=== PATIENT | male | born 1945 | race Caucasian/White ===

== ENCOUNTER 2022-07-25 07:00 | Day surgery (SDC) | payer MEDICARE, OTHER ==
[2022-07-24 14:57] LABS: BASOPHILS % (AUTO) 0.5 % (0-1); EOSINOPHILS # (AUTO) 0.1 X10'3 (0-0.9); EOSINOPHILS % (AUTO) 2.5 % (0-6); HEMATOCRIT 40.5 % (42.0-52.0); HEMOGLOBIN 13.9 g/dl (14.0-17.9); LYMPHOCYTES # (AUTO) 1.5 X10'3 (1.1-4.8); LYMPHOCYTES % (AUTO) 27.4 % (21-51); MEAN CORPUSCULAR HEMOGLOBIN 31.7 PG (27.0-31.0); MEAN CORPUSCULAR HGB CONC 34.3 g/dL (33.0-36.5); MEAN CORPUSCULAR VOLUME 92.3 FL (78-98); MEAN PLATELET VOLUME 8.3 FL (7.4-10.4); MONOCYTES # (AUTO) 0.5 X10'3 (0-0.9); MONOCYTES % (AUTO) 9.9 % (2-12); NEUTROPHILS # (AUTO) 3.2 X10'3 (1.8-7.7); NEUTROPHILS % (AUTO) 59.7 % (42-75); PLATELET COUNT 153 X10'3 (140-440); RED BLOOD COUNT 4.39 X10'6 (4.70-6.10); RED CELL DISTRIBUTION WIDTH 13.6 % (11.5-14.5); WHITE BLOOD COUNT 5.4 X10'3 (4.5-11.0)
[2022-07-24 14:59] LABS: ALBUMIN 3.8 G/DL (3.4-5.0); ANION GAP 5 (8-16); BLOOD UREA NITROGEN 27 MG/DL (7-18); CALCIUM 9.2 MG/DL (8.5-10.1); CHLORIDE 104 MMOL/L (99-107); CREATININE 1.08 MG/DL (0.60-1.10); GLUCOSE 97 MG/DL (70-104); POTASSIUM 4.3 MMOL/L (3.5-5.1); SODIUM 139 MMOL/L (135-145); TOTAL CARBON DIOXIDE 30.2 MMOL/L (24-32); eGFR 66 ML/MIN
[~2022-07-25] VITALS: Ht 182.9 cm; Wt 81.6 kg
[~2022-07-25 07:00] MED LIST: ATOR20TA66 PO; CHOL400C8 PO; DRON400T7 PO; MULT-342 PO; OSC500T PO
[2022-07-25] MEDS ORDERED: morphine 10mg/ml inj. IV ONE (07:15)
[2022-07-25] MEDS ORDERED: LORazepam 0.5 MG tablet PO ONE (07:15)
[2022-07-25] MEDS ORDERED: MIDAZolam 1mg/ml 10ml vial IV ONE (07:15)
[2022-07-25] MEDS ORDERED: atropine 0.1mg/ml 10ml syringe IV ONE (07:15)
[2022-07-25] MEDS ORDERED: amiodarone 150mg/dext, iso-os 100 ML IV ONE (07:15)
[2022-07-25] MEDS ORDERED: diphenhydrAMINE 25mg capsule PO ONE (07:15)
[2022-07-25] MEDS ORDERED: normal saline 1000ml 1,000 ML IV SCH (07:15)
[2022-07-25] MEDS ORDERED: APIX5TAB3 PO (07:16)
[2022-07-25] MEDS ORDERED: FLEC100T35 PO (07:16)
[2022-07-25] MEDS ORDERED: ATOR10TA70 PO (07:16)
[2022-07-25] MEDS ORDERED: UBID100C16 PO (07:18)
[2022-07-25] MEDS ORDERED: ASPI-611 PO (07:18)
[2022-07-25 07:28] VITALS: BP 159/91
== END 2022-07-25 10:00 | disposition home or self-care (01) ==
LOC: SSTAY O 07:00
PROVIDERS: ATTEND Internal Medicine Cardiovascular Disease
DX: I48.0 Paroxysmal atrial fibrillation (principal); Z53.8 Procedure and treatment not carried out for other reasons; I10 Essential (primary) hypertension; E78.5 Hyperlipidemia, unspecified; Z79.899 Other long term (current) drug therapy
CPT/HCPCS: 36415; 80048; 85025; 85610; 93005; J7030; 92960; A4620